=== PATIENT | female | born 1935 | race Caucasian/White ===

== ENCOUNTER → 2017-04-28 | Outpatient (CLI) | payer MEDICARE ==
[2017-04-28 12:19] LABS: VITAMIN B12 LEVEL 452 PG/ML (247-911)
[2017-04-28 12:20] LABS: FOLATE 12.6 NG/ML (>5.4)
[2017-05-03 14:12] LABS: CERULOPLASMIN 26.7 mg/dL (19.0-39.0); COPPER PLASMA 105 ug/dL (72-166); VITAMIN B1 LEVEL WHOLE BLOOD 113.8 nmol/L (66.5-200.0); VITAMIN B6,PYRIDOXAL PHOSPHATE 2.1 ug/L (2.0-32.8); VITAMIN E LEVEL 10.9 mg/L (6.5-21.5)
== END ==
LOC: M LAB 10:55
DX: E53.9 Vitamin B deficiency, unspecified (principal); E61.0 Copper deficiency; R26.9 Unspecified abnormalities of gait and mobility
CPT/HCPCS: 82525

== ENCOUNTER → 2019-10-24 | Outpatient (REF) | payer MEDICARE ==
[2019-10-24 17:25] LABS: APPEARANCE, URINE CLEAR (CLEAR); BACTERIA, URINE AUTO NEGATIVE (NEGATIVE); BILIRUBIN, URINE AUTO NEGATIVE (NEGATIVE); BLOOD, URINE BLOOD NEGATIVE (NEGATIVE); COLOR, URINE STRAW (YELLOW); GLUCOSE, URINE (UA) AUTO NEGATIVE (NEGATIVE); KETONE, URINE AUTO NEGATIVE (NEGATIVE); LEUKOCYTE ESTERASE, URINE AUTO 1+ (NEGATIVE); NITRITE, URINE AUTO NEGATIVE (NEGATIVE); PROTEIN, URINE AUTO NEGATIVE (NEGATIVE); RBC, URINE AUTO 1 /HPF (0-3); SPECIFIC GRAVITY URINE AUTO 1.003 (1.002-1.035); SQUAMOUS EPITHELIAL CELL UR AU 1 /HPF (0-6); UROBILINOGEN, URINE AUTO 0.2 mg/dL (0.0-2.0); WBC, URINE AUTO 4 /HPF (0-3)
== END ==
LOC: M SMT 16:52
PROVIDERS: ATTEND Nurse Practitioner Women's Health
DX: R35.0 Frequency of micturition (principal)
CPT/HCPCS: 51702; 51798; 81001; 87086; G0463